=== PATIENT | male | born 2000 | race Caucasian/White ===

== ENCOUNTER 2021-01-11 22:40 | Emergency (ER) | payer BC, MEDICAID, SELFPAY ==
[2021-01-11 22:48] VITALS: BP 120/88; PULSE 68; RESP 16; TEMP 37; O2SAT 98
--- NOTE | 2021-01-11 22:50 | ED.DENTAL ---
HPI - Dental/Oral General Chief complaint: Dental/Oral Stated complaint: tooth pain Time Seen by Provider: 01/11/21 22:50 Source: patient Mode of arrival: ambulatory Limitations: no limitations History of Present Illness HPI Narrative: Patient comes in with toothache, with sharp pain, moderately severe, and ongoing for the past three weeks. He says his pain has becoming more severe over the past several days. Pain is in his right lower jaw at the 6 year molar there. He has had a cavity in that tooth for some time and has not had it treated. He says he has been unable to sleep for the last three days, due to pain. Ibuprofen has not decreased the pain, really nothing has. Onset (ago): week(s) Duration: constant Severity: mild Relieving factors: nothing Exacerbating factors: nothing Context: history of dental caries Related Data Allergies Allergy/AdvReac Type Severity Reaction Status Date / Time orange (food color) Allergy Intermediate Swelling Verified 01/11/21 22:48 Review of Systems Constitutional: Constitutional: Reports no additional constitutional complaints Eyes: Eyes: Reports no additional eye complaints ENT: Reports system reviewed and no additional complaints, except as documented Cardiovascular: Cardiovascular: Reports no additional cardiovascular complaints Respiratory: Respiratory: Reports no additional respiratory complaints Gastrointestinal: Gastrointestinal: Reports no additional gastrointestinal complaints Genitourinary: Genitourinary: Reports no additional male genitourinary complaints Musculoskeletal: Musculoskeletal: Reports no additional musculoskeletal complaints Integumentary/Breasts: Skin/Breast: Reports system reviewed and no additional complaints, except as docu Neurologic: Reports system reviewed and no additional complaints, except as documented Psychiatric: Psychiatric: Reports no additional psychiatric complaints Endocrine: Endocrine: Reports no additional endocrine complaints Hematologic/Lymphatic: Hematologic/Lymphatic: Reports no additional hematologic/lymphatic complaints Allergic/Immunologic: Allergic/Immunologic: Reports no additional allergic/immunologic complaints [facility] Past Medical History Medical History (Updated 01/11/21 @ 23:40 by Galindo Ortiz MD) No significant medical problems Surgical History Surgical History (Updated 01/11/21 @ 23:41 by Galindo Ortiz MD) H/O shoulder surgery Family History Family History (Updated 01/11/21 @ 23:42 by Galindo Ortiz MD) Other No significant family history Social History Social History (Updated 01/11/21 @ 23:43 by Galindo Ortiz MD) Smoking status: Never smoker Alcohol intake: never Gender identity (if verbalized by the patient): Male Exam Const: Orientation/consciousness: patient oriented x3 Limitations: altered mental status HENMT: Head: normal to inspection Ears: external ears normal and TM's normal bilaterally General nose exam: Normal external nose present Mouth: Yes Normal oral and palatal mucosa present Throat: posterior oropharynx normal Eyes: Conjunctivae: conjunctivae normal Neck: Neck: normal visual inspection Chest: Chest palpation & inspection: normal inspection of the chest Resp: Effort & Inspection: normal respiratory effort Auscultation: clear to auscultation bilaterally Cardio: Rate: regular rate Rhythm: regular rhythm GI: GI Palp: Yes Soft to palpation (nontender) Skin: General skin exam: normal color Rashes: no rashes Neuro: General: patient oriented x3 and moves all extremities Extrem: General: normal to inspection Psych: Appearance: grossly normal Mental Status: mental status grossly normal Thought content: Yes Normal thought content present Course Course Emergency Course: He was examined, he was given tramadol 50mg aon amoxicillin 500mg and discharged with prescriptions. MDM - Dental/Oral Differential Diagnosis Differential diagnosis: Likely de
[2021-01-11] MEDS: traMADol HCL (*CRX) 50 MG TABLET PO (22:59)
[2021-01-11] MEDS: AMOXICILLIN 500 MG CAPSULE PO (22:59)
[2021-01-11 23:01] VITALS: BP 110/88; PULSE 72; RESP 18; TEMP 36.6; O2SAT 98
== END 2021-01-11 23:02 | disposition home or self-care (01) ==
PROVIDERS: Emergency Provider Emergency Medicine; PCP Family Medicine
DX: K04.7 Periapical abscess without sinus (principal)
CPT/HCPCS: 99283; A9270